=== PATIENT | female | born 1965 | race Caucasian/White ===

== ENCOUNTER 2018-07-14 11:10 | Emergency (ER) | payer OTHER ==
[2018-07-14] MEDS: KETOROLAC 60 MG INJ IM (12:35)
== END 2018-07-14 14:05 | disposition home or self-care (01) ==
LOC: FTE 11:10
DX: R05 Cough (principal)
CPT/HCPCS: 71045; 96372; 99284-25

== ENCOUNTER 2018-08-25 11:16 | Emergency (ER) | payer OTHER ==
[2018-08-25] MEDS: KETOROLAC 30 MG INJ IM (13:14)
== END 2018-08-25 14:28 | disposition home or self-care (01) ==
LOC: FTE 11:16
DX: M54.32 Sciatica, left side (principal)
CPT/HCPCS: 72100; 96372; 99284-25

== ENCOUNTER 2018-10-27 10:37 | Emergency (ER) | payer OTHER ==
[2018-10-27 12:13] LABS: ADD MAN DIFF? NO
[2018-10-27 12:28] LABS: BASOPHIL # 0.1 10^3/ul (0.0-0.1); BASOPHILS % 0.7 % (0.0-2.0); EOSINOPHILS # 0.1 10^3/ul (0.0-0.5); EOSINOPHILS % 1.5 % (0.0-7.0); HEMATOCRIT 42.7 % (37.0-47.0); HEMOGLOBIN 13.6 g/dl (12.0-16.0); LYMPHOCYTES # 2.2 10^3/ul (0.8-2.9); LYMPHOCYTES % 32.5 % (15.0-51.0); MEAN CORPUSCULAR HEMOGLOBIN 29.7 pg (29.0-33.0); MEAN CORPUSCULAR HGB CONC 31.9 g/dl (32.0-37.0); MEAN CORPUSCULAR VOLUME 93.2 fl (82.0-101.0); MEAN PLATELET VOLUME 11.9 fl (7.4-10.4); MONOCYTE # 0.6 10^3/ul (0.3-0.9); MONOCYTES % 9.4 % (0.0-11.0); NEUTROPHIL # 3.8 10^3/ul (1.6-7.5); NEUTROPHILS % 55.6 % (39.0-77.0); PLATELET COUNT 165 10^3/UL (140-415); RED BLOOD COUNT 4.58 10^6/ul (4.20-5.40); RED CELL DISTRIBUTION WIDTH 12.6 % (11.5-14.5)
[2018-10-27 12:28] LABS: WHITE BLOOD COUNT 6.8 10^3/ul (4.8-10.8)
[2018-10-27 12:34] LABS: ALANINE AMINOTRANSFERASE 23 IU/L (13-69); ALBUMIN 4.6 g/dl (3.3-4.9); ALBUMIN/GLOBULIN RATIO 1.39; ALKALINE PHOSPHATASE 99 IU/L (42-121); ANION GAP 7 (5-13); ASPARTATE AMINO TRANSFERASE 33 IU/L (15-46); BILIRUBIN,INDIRECT 0.6 mg/dl (0-1.1); BILIRUBIN,TOTAL 0.6 mg/dl (0.2-1.3); BLOOD UREA NITROGEN 12 mg/dl (7-20); CALCIUM 9.4 mg/dl (8.4-10.2); CARBON DIOXIDE 33 mmol/L (21-31); CHLORIDE 102 mmol/L (97-110); Estimated GFR > 60 mL/min (>60); GLUCOSE 106 mg/dl (70-220); POTASSIUM 4.2 mmol/L (3.5-5.1); SODIUM 142 mmol/L (135-144); TOTAL PROTEIN 7.9 g/dl (6.1-8.1)
[2018-10-27 12:40] LABS: D-DIMER 284.89 ng/ml (<460)
[2018-10-27 12:44] LABS: TROPONIN-I < 0.012 ng/ml (0.000-0.120)
== END 2018-10-27 13:04 | disposition home or self-care (01) ==
LOC: FTE 13:04
DX: R05 Cough (principal); I10 Essential (primary) hypertension; M79.605 Pain in left leg
CPT/HCPCS: 71045; 80053; 84484; 85025; 85378; 93005; 93971; 99285-25